=== PATIENT | male | born 1985 | race Caucasian/White ===

== ENCOUNTER 2016-07-01 17:11 | Emergency (ER) | payer OTHER ==
[~2016-07-01] VITALS: Ht 175.3 cm; Wt 96.6 kg
[~2016-07-01 17:11] MED LIST: ACET65TA; DEPA500T; PRIL20CA
[2016-07-01] MEDS ORDERED: CITA20TA4 (17:19)
[2016-07-01] MEDS: ONDANSETRON 4 MG ORAL DISINTEGRATING TAB (S0181) PO ONE (20:54)
[2016-07-01] MEDS: LOPERAMIDE 2 MG CAP PO ONE (20:54)
[2016-07-01 20:56] LABS: BASO % 0.3 % (0.0-1.0); EOS # 0.1 K/mm3 (0.0-0.50); LARGE UNSTAINED CELL # 0.1 K/mm3 (0.0-0.4); LARGE UNSTAINED CELL % 1.5 % (0.0-4.0); LYMPH # 2.8 K/mm3 (1.5-6.5); LYMPH % 36.3 % (24.0-44.0); MEAN CORPUSCULAR HEMOGLOBIN 28.9 pg (27.0-33.0); MEAN CORPUSCULAR HGB CONC 33.8 g/dl (32.0-36.5); MEAN CORPUSCULAR VOLUME 85.5 fl (80.0-96.0); MONO # 0.4 K/mm3 (0.0-0.8); MONO % 4.9 % (0.0-5.0); NEUTROPHILS # 4.2 K/mm3 (1.8-7.7); PLATELET COUNT, AUTOMATED 223 k/mm3 (150-450); RED CELL DISTRIBUTION WIDTH 13.2 % (11.5-14.5); WHITE BLOOD COUNT 7.5 K/mm3 (4.0-10.0)
[2016-07-01 21:15] LABS: ANION GAP 7 MEQ/L (8-16); BLOOD UREA NITROGEN 17 MG/DL (7-18); CALCIUM LEVEL 8.6 MG/DL (8.5-10.1); CARBON DIOXIDE LEVEL 30 MEQ/L (21-32); CHLORIDE LEVEL 101 MEQ/L (98-107); CREATININE FOR GFR 0.96 MG/DL (0.70-1.30); GLOMERULAR FILTRATION RATE > 60.0 (>60); GLUCOSE, FASTING 96 MG/DL (70-105); POTASSIUM SERUM 3.8 MEQ/L (3.5-5.1); SODIUM LEVEL 138 MEQ/L (136-145)
[2016-07-01] MEDS ORDERED: ZOFR4TAB3 PO (22:23)
[2016-07-01 22:43] VITALS: BP 113/77
== END 2016-07-01 22:44 | disposition home or self-care (01) ==
LOC: M ED 18:07
DX: A05.9 Bacterial foodborne intoxication, unspecified (principal); Z79.899 Other long term (current) drug therapy

== ENCOUNTER 2018-10-26 08:12 | Emergency (ER) | payer OTHER, SELFPAY ==
[~2018-10-26] VITALS: Ht 175.3 cm; Wt 100.1 kg
[2018-10-26 08:12] VITALS: BP 131/77
[~2018-10-26 08:12] MED LIST changes: +CITA20TA6; +SUMA20SP; +ZOFR4TAB14 PO
[2018-10-26] MEDS ORDERED: KEFL500C17 PO (08:44)
[2018-10-26] MEDS ORDERED: CEPHALEXIN 500 MG CAP PO ONE (09:00)
== END 2018-10-26 09:03 | disposition home or self-care (01) ==
LOC: M ED 08:12
DX: J02.0 Streptococcal pharyngitis (principal); Z79.899 Other long term (current) drug therapy; R11.10 Vomiting, unspecified; F32.9 Major depressive disorder, single episode, unspecified

== ENCOUNTER 2019-09-04 21:21 | Emergency (ER) | payer OTHER, MEDICAID ==
[~2019-09-04] VITALS: Ht 175.3 cm; Wt 100.0 kg
[~2019-09-04 21:21] MED LIST changes: +KEFL500C17 PO
[2019-09-05] VITALS: BP 118/81
[2019-09-05] MEDS ORDERED: IBUPROFEN 600MG TAB PO ONE (00:15)
--- NOTE | 2019-09-05 08:49 | ECGEPIP ---
[facility] - ED Test Date: 2019-09-04 Pat Name: CRISSY MARINO Department: Room: - Gender: Male Treasury Assistant: tasneem : 1985 Requested By: ROOSEVELT TOMAS Order Number: [id number] Reading MD: Aung Ayoub Measurements Intervals [place] Rate: 71 P: 7 IA: 144 QRS: 46 QRSD: 104 T: 20 QT: 355 QTc: 387 Interpretive Statements SINUS RHYTHM POOR R WAVE PROGRESSION NSTTW ABNORMALITIES SIMILAR TO 03/09/15 Electronically Signed on 09-05-2019 8:49:10 EDT by Aung Ayoub
--- NOTE | 2019-09-05 10:38 | REP ---
REASON: Fever. COMPARISON: 07/20/2015 The technique utilized in obtaining the radiograph has magnified the cardiac silhouette and accentuated the interstitial markings. Minimal discoid opacities are seen in the left CP angle. The lung pang are otherwise clear and unchanged. The heart is not enlarged, and the osseous structures are normal. IMPRESSION: Minimal left CP angle subsegmental atelectatic change. Electronically Signed by Puneet Sanchez DO 09/05/2019 11:03 A
== END 2019-09-05 00:02 | disposition home or self-care (01) ==
LOC: M ED 21:21
DX: M94.0 Chondrocostal junction syndrome [Tietze] (principal)

== ENCOUNTER 2020-05-10 16:57 | Inpatient (IN) | payer MEDICAID, OTHER, SELFPAY ==
[~2020-05-10] VITALS: Ht 177.8 cm; Wt 118.2 kg
[2020-05-10 17:48] LABS: HEMATOCRIT 48.5 % (42.0-52.0); HEMOGLOBIN 16.3 g/dl (13.5-17.5); MEAN CORPUSCULAR HEMOGLOBIN 29.2 pg (27.0-33.0); MEAN CORPUSCULAR HGB CONC 33.6 g/dl (32.0-36.5); MEAN CORPUSCULAR VOLUME 86.8 fl (80.0-96.0); PLATELET COUNT, AUTOMATED 257 10^3/uL (150-450); RED BLOOD COUNT 5.59 10^6/uL (4.30-6.10); WHITE BLOOD COUNT 11.8 10^3/uL (4.0-10.0)
[2020-05-10 18:10] LABS: AMPHETAMINES LEVEL URINE NEGATIVE (NEGATIVE); BARBITURATES URINE NEGATIVE (NEGATIVE); BENZODIAZEPINES URINE NEGATIVE (NEGATIVE); CANNABINOIDS URINE NEGATIVE (NEGATIVE); COCAINE METABOLITE URINE NEGATIVE (NEGATIVE); METHADONE URINE NEGATIVE (NEGATIVE); OPIATES URINE NEGATIVE (NEGATIVE); PHENCYCLIDINE URINE NEGATIVE (NEGATIVE)
[2020-05-10 18:19] LABS: ACETAMINOPHEN LEVEL < 2.0 UG/ML (10.0-30.0); ALBUMIN 4.4 GM/DL (3.2-5.2); ALT/SGPT 92 U/L (12-78); BILIRUBIN,DIRECT 0.1 MG/DL (0.0-0.2); BILIRUBIN,TOTAL 0.6 MG/DL (0.2-1.0); BLOOD UREA NITROGEN 15 MG/DL (7-18); CALCIUM LEVEL 9.6 MG/DL (8.5-10.1); CARBON DIOXIDE LEVEL 26 MEQ/L (21-32); CHLORIDE LEVEL 103 MEQ/L (98-107); CREATININE FOR GFR 1.15 MG/DL (0.70-1.30); ETHYL ALCOHOL (ETHANOL) < 0.003 % (0.000-0.010); GLOMERULAR FILTRATION RATE > 60.0 (>60); GLUCOSE, FASTING 100 MG/DL (70-100); POTASSIUM SERUM 3.9 MEQ/L (3.5-5.1); SALICYLATE LEVEL < 1.7 MG/DL (5.0-30.0); SODIUM LEVEL 138 MEQ/L (136-145); TOTAL PROTEIN 8.3 GM/DL (6.4-8.2)
[2020-05-10] MEDS ORDERED: ACETAMINOPHEN TAB 650MG DOSE (2X325MG) PO PRN (22:20)
[2020-05-10] MEDS ORDERED: MAALOX 30 ML SUSP *UDC PO PRN (22:20)
[2020-05-10] MEDS ORDERED: traZODone 50 MG TAB PO PRN (22:20)
[2020-05-10] MEDS ORDERED: MOM 30ML SUSPENSION UDC PO PRN (22:20)
[2020-05-10] MEDS ORDERED: OLANZapine ORAL DISINTEGRATING TAB 5MG PO PRN (22:20)
[2020-05-10 22:57] LABS: RSV AMPLIFICATION NEGATIVE (NEGATIVE)
[2020-05-10 23:46] VITALS: BP 124/80
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
--- NOTE | 2020-05-11 13:56 | HPEPDOC ---
[facility] Medical History & Physical Date of Admission May 10, 2020 Date of Service: May 11, 2020 History and Physical Chief complaint: Who was admitted to the inpatient mental health unit for suicidal ideation History of present illness: Patient is a 34-year-old male with no significant past medical history who was presented to the emergency room with suicidal ideation. He was admitted to the inpatient mental health unit under the care of psychiatry. Hospitalist service was consulted for medical screening evaluation. Currently patient denies any active headache. Denies any nausea, vomiting, chest pain, shortness of breath, palpitations, abdominal pain, constipation, diarrhea, or discomfort with urination. He denies any recent fevers or chills. Reports that his appetite is fairly normal without any significant changes in his weight. 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 [employer] Review of Systems: 10 point review of systems complete, all negative otherwise stated in HPI Physical exam: - Vitals: BP [124/80], HR [103], RR [18], Sat [96%RA], Temp [97.4F] - General: Sitting up in chair, Speaking in full sentences, AAOx3 - HEENT: NC, AT, PERRLA - CVS: RRR, +S1S2 - Lungs: Fair air entry bilaterally, No appreciable wheezing / rales / rhonchi - Abdomen: Soft, Non-distended, Non-tender - Extremities: No lower extremity edema, No calf tenderness - Neuro: No focal motor or sensory deficit - Skin: No visible rashes Labs: See below Imaging: See below EKG: See below Assessment and Plan: Suicidal ideation - Patient has been admitted to the inpatient mental health unit under the care of psychiatry - Currently being managed by psychiatry Leukocytosis - Review of systems is negative for any source of infection - Hemodynamically stable and afebrile - Will hold off on antibiotics at this time DVT prophylaxis - Will continue with early ambulation Thank you for this consultation; hospitalist service will now sign off. Please reconsult us as needed Vital Signs Vital Signs Date Time Temp Pulse Resp B/P (MAP) Pulse Ox O2 Delivery O2 Flow Rate FiO2 05/10/20 23:46 97.4 103 18 124/80 (95) 96 Room Air Laboratory Data Labs 24H Laboratory Tests 2 05/10/20 17:33: Nucleated Red Blood Cells % (auto) 0.0, Anion Gap 9, Glomerular Filtration Rate > 60.0, Calcium Level 9.6, Total Bilirubin 0.6, Direct Bilirubin 0.1, Aspartate Amino Transf (AST/SGOT) 44H, Alanine Aminotransferase (ALT/SGPT) 92H, Alkaline Phosphatase 58, Total Protein 8.3H, Albumin 4.4, Albumin/Globulin Ratio 1.1, Thyroid Stimulating Hormone (TSH) 1.290, Salicylates Level < 1.7L, Urine Opiates Screen NEGATIVE, Urine Methadone Screen NEGATIVE, Acetaminophen Level < 2.0L, Urine Barbiturates Screen NEGATIVE, Urine Phencyclidine Screen NEGATIVE, Urine Amphetamines Screen NEGATIVE, Urine Benzodiazepines Screen NEGATIVE, Urine Cocaine Metabolite Screen NEGATIVE, Urine Cannabinoids Screen NEGATIVE, Ethyl Alcohol Level < 0.003 05/10/20 21:50: Coronavirus (COVID-19)(PCR) NEGATIVE, Influenza Type A (RT-PCR) NEGATIVE, Influenza Type B (RT-PCR) NEGATIVE, Respiratory Syncytial Virus (PCR) NEGATIVE CBC/BMP Laboratory Tests 05/10/20 17:33 Home Medications No Active Prescriptions or Reported Meds Allergies Coded Allergies: WOOL (FABRIC) (Verified Allergy, Intermediate, RASH, 05/10/20) SILVA BASSETT MD May 11, 2020 13:56
[2020-05-11 18:26] VITALS: BP 148/86
[2020-05-12 06:24] VITALS: BP 143/72
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
[2020-05-12 16:44] VITALS: BP 119/71
[2020-05-13 06:46] VITALS: BP 107/65
[2020-05-13 17:52] VITALS: BP 140/72
[2020-05-14 06:50] VITALS: BP 117/68
--- NOTE | 2020-05-14 11:14 | MHIPN ---
[facility] PROGRESS NOTE DATE: 05/13/2020 The patient states that he is doing good. He has no suicidal thoughts. He says he slept good. MENTAL STATUS EXAMINATION: He is alert and oriented times three. Eye contact is fair. Psychomotor activity is normal. There is no formal thought disorder noted. Mood is good. Affect appropriate to mood. He is not psychotic, suicidal, or homicidal. Concentration and memory is good. Insight and judgment fair. DIAGNOSES: Impulse control disorder. Mild mental retardation. TREATMENT PLAN: At this point, we will continue to monitor the patient for further elevation and stabilization of his mood and resolution of suicidal thoughts and we will treat with medications as indicated. DURATION OF VISIT: 25 minutes
[2020-05-14 17:28] VITALS: BP 141/90
[2020-05-15 06:35] VITALS: BP 154/90
[2020-05-15 16:39] VITALS: BP 138/85
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
[2020-05-16 06:30] VITALS: BP 148/88
--- NOTE | 2020-05-16 11:04 | MHDS ---
[facility] DISCHARGE SUMMARY DATE OF ADMISSION: 05/10/2020 DATE OF DISCHARGE: 05/16/2020 DIAGNOSES: 1. Adjustment disorder with depressed mood. 2. Impulse control disorder. IDENTIFYING DATA: He is a 34-year-old male, , was admitted because of suicidal and homicidal thoughts. For details of history of present illness, past psychiatric history, medical history, substance abuse history, social history, please refer to the initial evaluation. COURSE IN THE HOSPITAL: Patient inially was angry, depressed, for admitting him to the hospital, though he made a statement stating that he wants to buy a gun because he was angry with the Child Protective Services (CPS) worker. According to him, people misunderstood him. He reports that he has never hurt anybody and he has never had any homicidal thoughts. Patient was brought by the police. He has a court date today regarding the case he has against CPS worker. The CPS worker knows about the threat, he was warned, and the police also have been informed. Court also knows about the case. However, patient currently does not have any suicidal thoughts. Initially he was depressed because he was admitted to the hospital. Patient was encouraged to participate in activities which improved his self-esteem and started participating in groups. His mood improved. He was related well with the staff. No behavioral problems. No side effects from the medication. No current suicidal or homicidal ideas. MENTAL STATUS EXAMINATION: He is alert, cooperative, made good eye contact. Mood is euthymic. Affect is appropriate for mood. Denied any auditory or visual hallucinations. Thought content: Denied any suicidal or homicidal ideas. No preoccupation. No delusional thoughts. Insight and judgment fair. Impulse control is adequate. His memory, immediate, remote, recent, is good. VITAL SIGNS: Temperature 97.1, pulse 83, respiratory rate 18, blood pressure 148/88. LABORATORY DATA: His last CBC and BMP are within normal limits. Toxicology was negative. MEDICATIONS: Patient was given only as needed medications. We will discontinue all the medications. He will have individual and group therapy at the followup appointment at [facility] outpatient.
--- NOTE | 2020-05-16 17:10 | MHIPN ---
[facility] PROGRESS NOTE DATE: 05/14/2020 The patient tells me that he is doing good. He says he slept good and has no complaints. MENTAL STATUS EXAMINATION: This patient is alert and oriented times three. He is pleasant and cooperative, verbally spontaneous. There is no formal thought disorder. He says his mood is good. Affect full range and appropriate. He is not psychotic, suicidal, or homicidal. Concentration and memory is good. Insight and judgment is fair. DIAGNOSES: Unspecified impulse control disorder. Mild intellectual disability. TREATMENT PLAN: We will continue to monitor the patient for continued elevation and stabilization of his mood and continued resolution of any suicidal ideation.
== END 2020-05-16 11:15 | disposition home or self-care (01) | DRG 758 ==
LOC: M ED 16:57 → M ED INP 16:58 → M PSY 23:18
PROVIDERS: ADMIT Psychiatry & Neurology Child & Adolescent Psychiatry; ATTEND Psychiatry & Neurology Psychiatry
DX: F63.9 Impulse disorder, unspecified (principal); F43.21 Adjustment disorder with depressed mood; F70 Mild intellectual disabilities; D72.829 Elevated white blood cell count, unspecified; Z91.09 Other allergy status, other than to drugs and biological substances; Z20.822 Contact with and (suspected) exposure to COVID-19

== ENCOUNTER → 2020-06-27 | Outpatient (REF) | payer MEDICAID ==
[2020-06-27 11:26] LABS: BASO # 0.1 10^3/uL (0.0-0.2); BASO % 0.7 % (0.0-1.0); EOS # 0.2 10^3/uL (0.0-0.5); EOS % 2.2 % (0.0-3.0); HEMATOCRIT 49.2 % (42.0-52.0); HEMOGLOBIN 16.2 g/dl (13.5-17.5); LYMPH # 3.5 10^3/uL (1.5-5.0); LYMPH % 40.5 % (24.0-44.0); MEAN CORPUSCULAR HEMOGLOBIN 29.1 pg (27.0-33.0); MEAN CORPUSCULAR HGB CONC 32.9 g/dl (32.0-36.5); MEAN CORPUSCULAR VOLUME 88.3 fl (80.0-96.0); MONO # 0.9 10^3/uL (0.0-0.8); MONO % 10.6 % (2.0-8.0); NEUTROPHILS # 3.8 10^3/uL (1.5-8.5); NEUTROPHILS % 44.1 % (36.0-66.0); PLATELET COUNT, AUTOMATED 255 10^3/uL (150-450); RED BLOOD COUNT 5.57 10^6/uL (4.30-6.10); WHITE BLOOD COUNT 8.6 10^3/uL (4.0-10.0)
[2020-06-27 12:11] LABS: HEMOGLOBIN A1c 5.6 %
[2020-06-27 12:16] LABS: ALBUMIN 4.1 GM/DL (3.2-5.2); ALT/SGPT 161 U/L (12-78); BILIRUBIN,TOTAL 0.8 MG/DL (0.2-1.0); BLOOD UREA NITROGEN 17 MG/DL (7-18); CALCIUM LEVEL 9.7 MG/DL (8.5-10.1); CARBON DIOXIDE LEVEL 29 MEQ/L (21-32); CHLORIDE LEVEL 103 MEQ/L (98-107); CHOLESTEROL LEVEL 244 MG/DL (<200); CHOLESTEROL RISK RATIO 7.176 (<5); CREATININE FOR GFR 0.98 MG/DL (0.70-1.30); FREE T4 0.93 NG/DL (0.76-1.46); GLOMERULAR FILTRATION RATE > 60.0 (>60); GLUCOSE, FASTING 102 MG/DL (70-100); HDL CHOLESTEROL 34 MG/DL (>40); LDL CHOLESTEROL 131 MG/DL (<100); NON-HDL-C 210 MG/DL; POTASSIUM SERUM 4.3 MEQ/L (3.5-5.1); SODIUM LEVEL 137 MEQ/L (136-145); TRIGLYCERIDES LEVEL 397 MG/DL (<150)
== END ==
LOC: M SFHCPLAZ 09:22
PROVIDERS: ATTEND Nurse Practitioner Family
DX: Z00.00 Encounter for general adult medical examination without abnormal findings (principal); Z13.228 Encounter for screening for other metabolic disorders; Z13.220 Encounter for screening for lipoid disorders

== ENCOUNTER → 2020-12-26 | Outpatient (CLI) | payer MEDICAID ==
[2020-12-26 14:03] LABS: ALBUMIN 3.9 GM/DL (3.2-5.2); ALT/SGPT 83 U/L (12-78); BILIRUBIN,TOTAL 0.7 MG/DL (0.2-1.0); BLOOD UREA NITROGEN 11 MG/DL (7-18); CALCIUM LEVEL 9.9 MG/DL (8.5-10.1); CARBON DIOXIDE LEVEL 29 MEQ/L (21-32); CHLORIDE LEVEL 102 MEQ/L (98-107); CHOLESTEROL LEVEL 246 MG/DL (<200); CHOLESTEROL RISK RATIO 8.482 (<5); GLOMERULAR FILTRATION RATE > 60.0 (>60); GLUCOSE, FASTING 92 MG/DL (70-100); HDL CHOLESTEROL 29 MG/DL (>40); LDL CHOLESTEROL 152 MG/DL (<100); NON-HDL-C 217 MG/DL; POTASSIUM SERUM 4.5 MEQ/L (3.5-5.1); SODIUM LEVEL 138 MEQ/L (136-145); TOTAL PROTEIN 7.6 GM/DL (6.4-8.2); TRIGLYCERIDES LEVEL 325 MG/DL (<150)
[2020-12-26 14:42] LABS: HEMOGLOBIN A1c 5.6 %
== END ==
LOC: M PLALAB 12:04
PROVIDERS: ATTEND Nurse Practitioner Family
DX: E78.5 Hyperlipidemia, unspecified (principal)

== ENCOUNTER → 2021-08-21 | Outpatient (CLI) | payer MEDICAID ==
[~2021-08-21] MED LIST changes: -SUMA20SP; +SUMA20SP4
[2021-08-21 17:37] LABS: BASO % 0.3 % (0.0-1.0); EOS # 0.2 10^3/uL (0.0-0.5); EOS % 2.7 % (0.0-3.0); HEMATOCRIT 46.3 % (42.0-52.0); HEMOGLOBIN 15.2 g/dl (13.5-17.5); LYMPH # 2.3 10^3/uL (1.5-5.0); LYMPH % 30.3 % (24.0-44.0); MEAN CORPUSCULAR HEMOGLOBIN 28.7 pg (27.0-33.0); MEAN CORPUSCULAR HGB CONC 32.8 g/dl (32.0-36.5); MEAN CORPUSCULAR VOLUME 87.4 fl (80.0-96.0); MONO # 0.8 10^3/uL (0.0-0.8); NEUTROPHILS # 4.2 10^3/uL (1.5-8.5); NEUTROPHILS % 56.3 % (36.0-66.0); PLATELET COUNT, AUTOMATED 265 10^3/uL (150-450); WHITE BLOOD COUNT 7.5 10^3/uL (4.0-10.0)
[2021-08-21 17:53] LABS: CK-MB VALUE MASS 1.4 NG/ML (<3.6); MB/CK RELATIVE INDEX 0.61 (< OR =4)
[2021-08-21 17:55] LABS: HEMOGLOBIN A1c 5.5 %
[2021-08-21 18:01] LABS: ALBUMIN 3.7 GM/DL (3.2-5.2); ALT/SGPT 59 U/L (12-78); BILIRUBIN,TOTAL 0.8 MG/DL (0.2-1.0); BLOOD UREA NITROGEN 8 MG/DL (7-18); CALCIUM LEVEL 8.9 MG/DL (8.5-10.1); CARBON DIOXIDE LEVEL 29 MEQ/L (21-32); CHLORIDE LEVEL 105 MEQ/L (98-107); CHOLESTEROL LEVEL 185 MG/DL (<200); CHOLESTEROL RISK RATIO 7.115 (<5); CREATININE FOR GFR 0.96 MG/DL (0.70-1.30); GLOMERULAR FILTRATION RATE > 60.0 (>60); GLUCOSE, FASTING 87 MG/DL (70-100); HDL CHOLESTEROL 26 MG/DL (>40); LDL CHOLESTEROL 114 MG/DL (<100); NON-HDL-C 159 MG/DL; POTASSIUM SERUM 4.3 MEQ/L (3.5-5.1); SODIUM LEVEL 140 MEQ/L (136-145); TOTAL PROTEIN 7.4 GM/DL (6.4-8.2); TRIGLYCERIDES LEVEL 225 MG/DL (<150)
== END ==
LOC: M PLALAB 15:15
PROVIDERS: ATTEND Nurse Practitioner Family
DX: R07.89 Other chest pain (principal); K21.9 Gastro-esophageal reflux disease without esophagitis; E78.5 Hyperlipidemia, unspecified; R73.01 Impaired fasting glucose

== ENCOUNTER 2023-02-19 13:30 | Emergency (ER) | payer OTHER, SELFPAY ==
[~2023-02-19] VITALS: Ht 177.8 cm; Wt 112.9 kg
[2023-02-19] MEDS ORDERED: PANTOPRAZOLE 40MG VIAL IV ONE (19:40)
[2023-02-19] MEDS ORDERED: MAALOX 30 ML SUSP *UDC PO ONE (19:40)
[2023-02-19] MEDS ORDERED: ASPIRIN 81MG CHEW TABLET PO ONE (19:45)
[2023-02-19 20:09] LABS: BASO % 0.3 % (0.0-1.0); EOS # 0.1 10^3/uL (0.0-0.5); EOS % 1.1 % (0.0-3.0); HEMOGLOBIN 15.6 g/dl (13.5-17.5); LYMPH # 3.3 10^3/uL (1.5-5.0); MEAN CORPUSCULAR HEMOGLOBIN 29.3 pg (27.0-33.0); MEAN CORPUSCULAR HGB CONC 33.2 g/dl (32.0-36.5); MEAN CORPUSCULAR VOLUME 88.2 fl (80.0-96.0); MONO # 0.8 10^3/uL (0.0-0.8); MONO % 9.7 % (2.0-8.0); NEUTROPHILS # 3.8 10^3/uL (1.5-8.5); NEUTROPHILS % 47.5 % (36.0-66.0); PLATELET COUNT, AUTOMATED 267 10^3/uL (150-450); RED BLOOD COUNT 5.33 10^6/uL (4.30-6.10)
[2023-02-19 20:20] LABS: INR 1.22; PARTIAL THROMBOPLASTIN TIME 26.6 SECONDS (24.8-34.2); PROTHROMBIN TIME 15.1 SECONDS (12.5-14.5)
[2023-02-19 20:26] LABS: CK-MB VALUE MASS < 1.0 NG/ML (<3.6)
[2023-02-19 20:27] LABS: LIPASE 30 U/L (12-53)
[2023-02-19 20:29] LABS: ALBUMIN 4.1 G/DL (3.2-5.2); ALKALINE PHOSPHATASE 63 U/L (46-116); ALT/SGPT 27 U/L (7.0-40); AST/SGOT 17 U/L (<34); BILIRUBIN,DIRECT 0.6 MG/DL (<0.4); BILIRUBIN,TOTAL 2.4 MG/DL (0.3-1.2); BLOOD UREA NITROGEN 10 MG/DL (9-23); CARBON DIOXIDE LEVEL 28 MMOL/L (20-31); CHLORIDE LEVEL 103 MMOL/L (98-107); CPK CREATINE PHOSPHOKINASE 196 U/L (46-171); CREATININE FOR GFR 0.82 MG/DL (0.70-1.30); GLOMERULAR FILTRATION RATE > 60.0 (>60); GLUCOSE, FASTING 86 MG/DL (60-100); MB/CK RELATIVE INDEX 0.51 (< OR =4); POTASSIUM SERUM 3.9 MMOL/L (3.5-5.1); SODIUM LEVEL 138 MMOL/L (136-145); TOTAL PROTEIN 7.1 G/DL (5.7-8.2)
[2023-02-19 20:30] LABS: THYROID STIMULATING HORMONE 1.538 uIU/ML (0.55-4.78)
[2023-02-19 20:31] LABS: FREE T4 1.32 NG/DL (0.89-1.76)
[2023-02-19] MEDS ORDERED: ISOVUE-370 76% 100ML VIAL As Ordered ONE (20:33)
[2023-02-19 21:47] LABS: CK-MB VALUE MASS < 1.0 NG/ML (<3.6)
[2023-02-19 21:51] LABS: CPK CREATINE PHOSPHOKINASE 171 U/L (46-171); MB/CK RELATIVE INDEX 0.58 (< OR =4)
[2023-02-19 22:30] VITALS: BP 106/73; TEMP 98.8
[2023-02-19 22:45] VITALS: O2SAT 93
== END 2023-02-19 22:55 | disposition home or self-care (01) ==
LOC: M ED 13:30
DX: R07.9 Chest pain, unspecified (principal); F17.210 Nicotine dependence, cigarettes, uncomplicated
CPT/HCPCS: 71275; 74176; 80048; 80076; 82550; 82553; 83690; 84439; 84443; 84484; 85025; 85610; 85730; 93005; 93041; 94760; 96374; 99285; C9113; Q9967

== ENCOUNTER 2023-03-31 16:35 | Emergency (ER) | payer MEDICAID, OTHER, SELFPAY ==
[~2023-03-31] VITALS: Ht 175.3 cm; Wt 118.8 kg
[2023-03-31] MEDS ORDERED: EZET10TA21 (17:28)
[2023-03-31] MEDS ORDERED: ATOR80TA59 (17:28)
[2023-03-31] MEDS ORDERED: OMEP40CA5 (17:28)
[2023-03-31 18:03] LABS: BASO # 0.1 10^3/uL (0.0-0.2); BASO % 0.7 % (0.0-1.0); EOS # 0.2 10^3/uL (0.0-0.5); EOS % 2.7 % (0.0-3.0); HEMATOCRIT 47.3 % (42.0-52.0); HEMOGLOBIN 15.8 g/dl (13.5-17.5); LYMPH # 2.2 10^3/uL (1.5-5.0); LYMPH % 24.5 % (24.0-44.0); MEAN CORPUSCULAR HEMOGLOBIN 29.7 pg (27.0-33.0); MEAN CORPUSCULAR HGB CONC 33.4 g/dl (32.0-36.5); MEAN CORPUSCULAR VOLUME 88.9 fl (80.0-96.0); MONO # 0.8 10^3/uL (0.0-0.8); MONO % 9.1 % (2.0-8.0); NEUTROPHILS # 5.4 10^3/uL (1.5-8.5); NEUTROPHILS % 61.2 % (36.0-66.0); PLATELET COUNT, AUTOMATED 273 10^3/uL (150-450); RED BLOOD COUNT 5.32 10^6/uL (4.30-6.10); WHITE BLOOD COUNT 8.8 10^3/uL (4.0-10.0)
[2023-03-31 18:25] LABS: CK-MB VALUE MASS 1.3 NG/ML (<3.6)
[2023-03-31 18:26] LABS: LIPASE 47 U/L (12-53)
[2023-03-31 18:29] LABS: THYROID STIMULATING HORMONE 2.026 uIU/ML (0.55-4.78)
[2023-03-31 18:33] LABS: ALBUMIN 3.9 G/DL (3.2-5.2); ALKALINE PHOSPHATASE 62 U/L (46-116); ALT/SGPT 76 U/L (7.0-40); AST/SGOT 36 U/L (<34); BILIRUBIN,DIRECT 0.1 MG/DL (<0.4); BILIRUBIN,TOTAL 0.7 MG/DL (0.3-1.2); BLOOD UREA NITROGEN 22 MG/DL (9-23); CALCIUM LEVEL 8.8 MG/DL (8.5-10.1); CARBON DIOXIDE LEVEL 28 MMOL/L (20-31); CHLORIDE LEVEL 103 MMOL/L (98-107); CPK CREATINE PHOSPHOKINASE 230 U/L (46-171); CREATININE FOR GFR 0.89 MG/DL (0.70-1.30); GLOMERULAR FILTRATION RATE > 60.0 (>60); GLUCOSE, FASTING 85 MG/DL (60-100); MB/CK RELATIVE INDEX 0.56 (< OR =4); POTASSIUM SERUM 3.9 MMOL/L (3.5-5.1); SODIUM LEVEL 137 MMOL/L (136-145)
[2023-03-31] MEDS ORDERED: ISOVUE-370 76% 100ML VIAL As Ordered ONE (22:27)
[2023-03-31] MEDS: SUCRALFATE SUSP 1GM/10ML UD PO ONE (23:02)
[2023-03-31 23:37] LABS: MB/CK RELATIVE INDEX 0.52 (< OR =4)
[2023-04-01] VITALS: BP 104/57; TEMP 98.2; O2SAT 95
== END 2023-04-01 00:11 | disposition home or self-care (01) ==
LOC: M ED 16:35
DX: R07.9 Chest pain, unspecified (principal); K30 Functional dyspepsia; K21.9 Gastro-esophageal reflux disease without esophagitis; E78.5 Hyperlipidemia, unspecified; G43.909 Migraine, unspecified, not intractable, without status migrainosus; F17.200 Nicotine dependence, unspecified, uncomplicated; F10.10 Alcohol abuse, uncomplicated; Z91.048 Other nonmedicinal substance allergy status; Z79.02 Long term (current) use of antithrombotics/antiplatelets; Z79.83 Long term (current) use of bisphosphonates; Z79.899 Other long term (current) drug therapy
CPT/HCPCS: 36415; 71046; 71275; 80048; 80076; 82550; 82553; 83690; 83880; 84443; 85025; 93005; 99284; Q9967

== ENCOUNTER → 2023-04-21 | Outpatient (CLI) | payer OTHER ==
[~2023-04-21] MED LIST changes: +ATOR80TA59; +EZET10TA21; +OMEP40CA5
[2023-04-21 10:46] LABS: CPK CREATINE PHOSPHOKINASE 96 U/L (46-171)
[2023-04-21 10:47] LABS: ALKALINE PHOSPHATASE 78 U/L (46-116); ALT/SGPT 53 U/L (7.0-40); AST/SGOT 30 U/L (<34); BILIRUBIN,TOTAL 1.5 MG/DL (0.3-1.2); BLOOD UREA NITROGEN 8 MG/DL (9-23); CALCIUM LEVEL 8.8 MG/DL (8.5-10.1); CARBON DIOXIDE LEVEL 30 MMOL/L (20-31); CHLORIDE LEVEL 103 MMOL/L (98-107); CHOLESTEROL LEVEL 120 MG/DL (<200); CREATININE FOR GFR 0.99 MG/DL (0.70-1.30); GLOMERULAR FILTRATION RATE > 60.0 (>60); GLUCOSE, FASTING 101 MG/DL (60-100); HDL CHOLESTEROL 23.5 MG/DL (>40); LDL CHOLESTEROL 61.9 MG/DL (<100); NON-HDL-C 96.5 MG/DL; POTASSIUM SERUM 4.3 MMOL/L (3.5-5.1); SODIUM LEVEL 140 MMOL/L (136-145); TOTAL PROTEIN 7.1 G/DL (5.7-8.2); TRIGLYCERIDES LEVEL 173 MG/DL (<150)
[2023-04-21 10:53] LABS: HEMOGLOBIN A1c 5.4 % (4.0-6.0)
== END ==
LOC: M LAB 09:52
PROVIDERS: ATTEND Nurse Practitioner Family
DX: E78.5 Hyperlipidemia, unspecified (principal)

== ENCOUNTER 2023-09-27 15:58 | Emergency (ER) | payer OTHER ==
[~2023-09-27] VITALS: Ht 177.8 cm; Wt 105.5 kg
[2023-09-27] MEDS ORDERED: PROP60TA14 (16:12)
[2023-09-27] MEDS ORDERED: ESCITALOPRAM (16:12)
[2023-09-27] MEDS ORDERED: LEXA1TAB2 (16:12)
[2023-09-27 16:36] LABS: BASO % 0.3 % (0.0-1.0); EOS # 0.1 10^3/uL (0.0-0.5); EOS % 0.7 % (0.0-3.0); HEMATOCRIT 44.8 % (42.0-52.0); LYMPH # 1.5 10^3/uL (1.5-5.0); LYMPH % 20.9 % (24.0-44.0); MEAN CORPUSCULAR HEMOGLOBIN 29.3 pg (27.0-33.0); MEAN CORPUSCULAR HGB CONC 33.5 g/dl (32.0-36.5); MEAN CORPUSCULAR VOLUME 87.5 fl (80.0-96.0); MONO # 0.5 10^3/uL (0.0-0.8); MONO % 7.2 % (2.0-8.0); NEUTROPHILS # 5.2 10^3/uL (1.5-8.5); NEUTROPHILS % 70.5 % (36.0-66.0); PLATELET COUNT, AUTOMATED 261 10^3/uL (150-450); RED BLOOD COUNT 5.12 10^6/uL (4.30-6.10); WHITE BLOOD COUNT 7.4 10^3/uL (4.0-10.0)
[2023-09-27 17:00] LABS: LIPASE 42 U/L (12-53)
[2023-09-27 17:03] LABS: ALBUMIN 4.3 G/DL (3.2-5.2); ALKALINE PHOSPHATASE 51 U/L (46-116); ALT/SGPT 27 U/L (7.0-40); AST/SGOT 26 U/L (<34); BILIRUBIN,DIRECT 0.3 MG/DL (<0.4); BILIRUBIN,TOTAL 0.9 MG/DL (0.3-1.2); BLOOD UREA NITROGEN 16 MG/DL (9-23); CALCIUM LEVEL 9.3 MG/DL (8.5-10.1); CARBON DIOXIDE LEVEL 29 MMOL/L (20-31); CHLORIDE LEVEL 106 MMOL/L (98-107); CK-MB VALUE MASS 2.8 NG/ML (<3.6); CREATININE FOR GFR 0.96 MG/DL (0.70-1.30); GLOMERULAR FILTRATION RATE > 60.0 (>60); GLUCOSE, FASTING 93 MG/DL (60-100); SODIUM LEVEL 139 MMOL/L (136-145); TOTAL PROTEIN 7.4 G/DL (5.7-8.2)
[2023-09-27 17:15] LABS: CPK CREATINE PHOSPHOKINASE 535 U/L (46-171); MB/CK RELATIVE INDEX 0.52 (< OR =4)
[2023-09-27] MEDS: METOCLOPRAMIDE INJ 10MG/2ML VIAL IV ONE (17:21)
[2023-09-27] MEDS: KETOROLAC 30 MG/ML 1ML VIAL IV ONE (17:21)
[2023-09-27 17:58] LABS: CK-MB VALUE MASS 2.2 NG/ML (<3.6)
[2023-09-27 18:00] LABS: MB/CK RELATIVE INDEX 0.44 (< OR =4)
[2023-09-27] MEDS ORDERED: IBUP-1022 PO (18:40)
[2023-09-27 18:47] VITALS: BP 131/85; TEMP 97.4; O2SAT 99
== END 2023-09-27 18:48 | disposition home or self-care (01) ==
LOC: M ED 15:58
DX: R07.9 Chest pain, unspecified (principal); R10.9 Unspecified abdominal pain; K21.9 Gastro-esophageal reflux disease without esophagitis; E78.5 Hyperlipidemia, unspecified; G43.909 Migraine, unspecified, not intractable, without status migrainosus; Z91.048 Other nonmedicinal substance allergy status; Z79.899 Other long term (current) drug therapy; Z79.1 Long term (current) use of non-steroidal anti-inflammatories (NSAID)
CPT/HCPCS: 71045; 76705; 80047; 80048; 80076; 82550; 82553; 83690; 84484; 85025; 93005; 96374; 99284; J1885; J2765

== ENCOUNTER 2023-11-22 10:20 | Emergency (ER) | payer OTHER ==
[~2023-11-22] VITALS: Ht 177.8 cm; Wt 106.1 kg
[~2023-11-22 10:20] MED LIST changes: +ESCITALOPRAM; +IBUP-1022 PO; +LEXA1TAB2; +PROP60TA14
[2023-11-22] MEDS ORDERED: IBUP-1022 PO (13:16)
[2023-11-22] MEDS ORDERED: ACET325C5 PO (13:16)
[2023-11-22] MEDS: IBUPROFEN 600MG TAB PO ONE (13:20)
[2023-11-22 13:26] VITALS: BP 130/84; TEMP 96.8; O2SAT 100
== END 2023-11-22 13:27 | disposition home or self-care (01) ==
LOC: M ED 10:20
DX: S90.811A Abrasion, right foot, initial encounter (principal); S90.812A Abrasion, left foot, initial encounter; G43.909 Migraine, unspecified, not intractable, without status migrainosus; I10 Essential (primary) hypertension; K21.9 Gastro-esophageal reflux disease without esophagitis; F17.200 Nicotine dependence, unspecified, uncomplicated; Z91.048 Other nonmedicinal substance allergy status; Z79.899 Other long term (current) drug therapy; Y92.9 Unspecified place or not applicable; Y93.89 Activity, other specified; Y99.9 Unspecified external cause status

== ENCOUNTER 2023-11-25 17:18 | Emergency (ER) | payer OTHER ==
[~2023-11-25] VITALS: Ht 177.8 cm; Wt 112.0 kg
[~2023-11-25 17:18] MED LIST changes: +ACET325C5 PO
[2023-11-25 17:23] VITALS: TEMP 97.1
[2023-11-25] MEDS: KETOROLAC 30 MG/ML 1ML VIAL IV ONE (18:57)
[2023-11-25 19:09] LABS: BASO % 0.3 % (0.0-1.0); EOS # 0.2 10^3/uL (0.0-0.5); EOS % 2.4 % (0.0-3.0); HEMATOCRIT 42.7 % (42.0-52.0); LYMPH # 1.9 10^3/uL (1.5-5.0); LYMPH % 27.6 % (24.0-44.0); MEAN CORPUSCULAR HEMOGLOBIN 29.1 pg (27.0-33.0); MEAN CORPUSCULAR HGB CONC 32.8 g/dl (32.0-36.5); MEAN CORPUSCULAR VOLUME 88.8 fl (80.0-96.0); MONO # 0.7 10^3/uL (0.0-0.8); MONO % 9.7 % (2.0-8.0); NEUTROPHILS # 4.1 10^3/uL (1.5-8.5); NEUTROPHILS % 59.1 % (36.0-66.0); PLATELET COUNT, AUTOMATED 237 10^3/uL (150-450); RED BLOOD COUNT 4.81 10^6/uL (4.30-6.10)
[2023-11-25 19:39] LABS: LIPASE 42 U/L (12-53)
[2023-11-25 19:41] LABS: ALBUMIN 3.5 G/DL (3.2-5.2); ALKALINE PHOSPHATASE 47 U/L (46-116); ALT/SGPT 18 U/L (7.0-40); AST/SGOT 15 U/L (<34); BILIRUBIN,DIRECT 0.2 MG/DL (<0.4); BILIRUBIN,TOTAL 0.6 MG/DL (0.3-1.2); BLOOD UREA NITROGEN 16 MG/DL (9-23); CALCIUM LEVEL 8.4 MG/DL (8.5-10.1); CARBON DIOXIDE LEVEL 28 MMOL/L (20-31); CHLORIDE LEVEL 108 MMOL/L (98-107); CK-MB VALUE MASS 1.1 NG/ML (<3.6); CREATININE FOR GFR 0.79 MG/DL (0.70-1.30); GLOMERULAR FILTRATION RATE > 60.0 (>60); GLUCOSE, FASTING 85 MG/DL (60-100); POTASSIUM SERUM 3.9 MMOL/L (3.5-5.1); SODIUM LEVEL 138 MMOL/L (136-145); TOTAL PROTEIN 6.6 G/DL (5.7-8.2)
[2023-11-25 19:43] LABS: FREE T4 1.14 NG/DL (0.89-1.76); THYROID STIMULATING HORMONE 1.234 uIU/ML (0.55-4.78)
[2023-11-25 19:46] LABS: CPK CREATINE PHOSPHOKINASE 225 U/L (46-171); MB/CK RELATIVE INDEX 0.48 (< OR =4)
[2023-11-25 20:23] LABS: CK-MB VALUE MASS < 1.0 NG/ML (<3.6)
[2023-11-25 20:28] LABS: CPK CREATINE PHOSPHOKINASE 205 U/L (46-171); MB/CK RELATIVE INDEX 0.48 (< OR =4)
[2023-11-25 20:39] VITALS: BP 135/78; O2SAT 98
[2023-11-25] MEDS: MAALOX 30 ML SUSP *UDC PO ONE (21:52)
[2023-11-25] MEDS: LIDOCAINE VISCOUS 2% SOLN 15ML UDC PO ONE (21:53)
== END 2023-11-25 22:59 | disposition home or self-care (01) ==
LOC: M ED 17:18
DX: R07.9 Chest pain, unspecified (principal); E78.5 Hyperlipidemia, unspecified; G43.909 Migraine, unspecified, not intractable, without status migrainosus; K21.9 Gastro-esophageal reflux disease without esophagitis; F17.200 Nicotine dependence, unspecified, uncomplicated; Z91.048 Other nonmedicinal substance allergy status; Z79.899 Other long term (current) drug therapy
CPT/HCPCS: 71045; 80048; 80076; 82550; 82553; 83690; 84439; 84443; 84484; 85025; 93005; 96374; 99284; J1885

== ENCOUNTER 2023-11-29 13:35 | Emergency (ER) | payer OTHER ==
[~2023-11-29] VITALS: Ht 177.8 cm; Wt 108.0 kg
[2023-11-29] MEDS: KETOROLAC 30 MG/ML 1ML VIAL IV ONE (15:43)
[2023-11-29] MEDS: METOCLOPRAMIDE INJ 10MG/2ML VIAL IV ONE (15:43)
[2023-11-29] MEDS: NS 1,000 ML IV ONE (15:43)
[2023-11-29] MEDS: diphenhydrAMINE 50MG/ML VIAL IV ONE (15:43)
[2023-11-29 16:55] VITALS: BP 137/68; TEMP 97.2; O2SAT 98
== END 2023-11-29 17:26 | disposition home or self-care (01) ==
LOC: M ED 13:35
DX: G43.909 Migraine, unspecified, not intractable, without status migrainosus (principal); K21.9 Gastro-esophageal reflux disease without esophagitis; F17.200 Nicotine dependence, unspecified, uncomplicated; Z79.899 Other long term (current) drug therapy
CPT/HCPCS: 80047; 96361; 96374; 99283; J1100; J1200; J1885; J2765

== ENCOUNTER 2024-02-25 14:32 | Emergency (ER) | payer OTHER ==
[~2024-02-25] VITALS: Ht 177.8 cm; Wt 109.2 kg
[2024-02-25 14:34] VITALS: BP 142/86; TEMP 97.6; O2SAT 100
[2024-02-25] MEDS ORDERED: IBUP-1022 PO (17:54)
[2024-02-25] MEDS: IBUPROFEN 600MG TAB PO ONE (17:56)
== END 2024-02-25 18:03 | disposition home or self-care (01) ==
LOC: M ED 14:32
DX: S80.01XA Contusion of right knee, initial encounter (principal); W17.89XA Other fall from one level to another, initial encounter; G43.909 Migraine, unspecified, not intractable, without status migrainosus; M54.50 Low back pain, unspecified; K21.9 Gastro-esophageal reflux disease without esophagitis; F32.A Depression, unspecified; Z91.048 Other nonmedicinal substance allergy status; Z79.1 Long term (current) use of non-steroidal anti-inflammatories (NSAID); Z79.899 Other long term (current) drug therapy; Y92.009 Unspecified place in unspecified non-institutional (private) residence as the place of occurrence of the external cause; Y93.89 Activity, other specified; Y99.9 Unspecified external cause status

== ENCOUNTER 2024-05-11 17:05 | Emergency (ER) | payer OTHER ==
[~2024-05-11] VITALS: Ht 177.8 cm; Wt 115.0 kg
[2024-05-11] MEDS ORDERED: ACET1TAB55 PO (17:11)
[2024-05-12] MEDS ORDERED: ACETAMINOPHEN 500 MG TAB PO ONE (00:05)
[2024-05-12] MEDS: KETOROLAC 30 MG/ML 1ML VIAL IV ONE (05:34)
[2024-05-12] MEDS: diphenhydrAMINE 50MG/ML VIAL IV ONE (05:34)
[2024-05-12] MEDS: NS (Normal Saline) 0.9% 1,000 ML IV ONE (05:34)
[2024-05-12] MEDS: METOCLOPRAMIDE INJ 10MG/2ML VIAL IV ONE (06:18)
[2024-05-12 09:00] VITALS: BP 108/70; TEMP 97; O2SAT 99
== END 2024-05-12 09:18 | disposition home or self-care (01) ==
LOC: M ED 17:05
DX: G43.909 Migraine, unspecified, not intractable, without status migrainosus (principal); F17.200 Nicotine dependence, unspecified, uncomplicated; F10.10 Alcohol abuse, uncomplicated; Z91.048 Other nonmedicinal substance allergy status; Z79.899 Other long term (current) drug therapy; Z79.1 Long term (current) use of non-steroidal anti-inflammatories (NSAID)
CPT/HCPCS: 96361; 96374; 96375; 99284; J1200; J1885; J2765

== ENCOUNTER 2024-06-04 15:58 | Emergency (ER) | payer OTHER ==
[~2024-06-04] VITALS: Ht 177.8 cm; Wt 114.7 kg
[~2024-06-04 15:58] MED LIST changes: +ACET1TAB55 PO
[2024-06-04 16:30] LABS: BASO % 0.1 % (0.0-1.0); EOS # 0.1 10^3/uL (0.0-0.5); EOS % 1.9 % (0.0-3.0); HEMATOCRIT 44.7 % (42.0-52.0); HEMOGLOBIN 15.3 g/dl (13.5-17.5); LYMPH # 2.7 10^3/uL (1.5-5.0); LYMPH % 38.7 % (24.0-44.0); MEAN CORPUSCULAR HEMOGLOBIN 29.6 pg (27.0-33.0); MEAN CORPUSCULAR HGB CONC 34.2 g/dl (32.0-36.5); MEAN CORPUSCULAR VOLUME 86.5 fl (80.0-96.0); MONO # 0.6 10^3/uL (0.0-0.8); MONO % 8.3 % (2.0-8.0); NEUTROPHILS # 3.5 10^3/uL (1.5-8.5); NEUTROPHILS % 50.6 % (36.0-66.0); PLATELET COUNT, AUTOMATED 260 10^3/uL (150-450); RED BLOOD COUNT 5.17 10^6/uL (4.30-6.10)
[2024-06-04 16:43] LABS: INR 0.98; PROTHROMBIN TIME 13.2 SECONDS (12.5-14.5)
[2024-06-04 17:01] LABS: CK-MB VALUE MASS 1.4 NG/ML (<3.6); LIPASE 37 U/L (12-53)
[2024-06-04 17:03] LABS: ALBUMIN 3.8 G/DL (3.2-5.2); ALKALINE PHOSPHATASE 51 U/L (40-129); ALT/SGPT 23 U/L (7.0-40); AST/SGOT 20 U/L (<34); BILIRUBIN,DIRECT 0.2 MG/DL (<0.4); BILIRUBIN,TOTAL 0.9 MG/DL (0.3-1.2); BLOOD UREA NITROGEN 11 MG/DL (9-23); CALCIUM LEVEL 8.7 MG/DL (8.5-10.1); CARBON DIOXIDE LEVEL 24 MMOL/L (20-31); CHLORIDE LEVEL 105 MMOL/L (98-107); CREATININE FOR GFR 0.76 MG/DL (0.70-1.30); GLOMERULAR FILTRATION RATE > 90.0 (>60); GLUCOSE, FASTING 117 MG/DL (60-100); POTASSIUM SERUM 3.9 MMOL/L (3.5-5.1); SODIUM LEVEL 140 MMOL/L (136-145); TOTAL PROTEIN 6.9 G/DL (5.7-8.2)
[2024-06-04 17:04] LABS: CPK CREATINE PHOSPHOKINASE 253 U/L (46-171); MB/CK RELATIVE INDEX 0.55 (< OR =4)
[2024-06-04 19:39] LABS: CK-MB VALUE MASS 1.5 NG/ML (<3.6)
[2024-06-04 19:48] LABS: MB/CK RELATIVE INDEX 0.63 (< OR =4)
[2024-06-04 20:15] VITALS: BP 130/87; O2SAT 98
[2024-06-04 20:20] VITALS: TEMP 97.8
== END 2024-06-04 20:24 | disposition home or self-care (01) ==
LOC: M ED 15:58
DX: R07.89 Other chest pain (principal); K21.9 Gastro-esophageal reflux disease without esophagitis; Z91.09 Other allergy status, other than to drugs and biological substances; Z79.1 Long term (current) use of non-steroidal anti-inflammatories (NSAID); Z79.899 Other long term (current) drug therapy